=== PATIENT | male | born 1985 | race Hispanic/Latino ===

== ENCOUNTER 2017-10-01 19:27 | Emergency (ER) | payer OTHER ==
[2017-10-01] MEDS ORDERED: TETANUS/DIPHTHERIA TOXOID [ADULT] 0.5 ML VIAL IM ONE (19:41)
[2017-10-01] MEDS ORDERED: CEFTRIAXONE SODIUM 1 GM ONE (20:00)
[2017-10-01] MEDS ORDERED: LIDOCAINE HCL-MPF 1% 2ML VIAL ONE (20:00)
[2017-10-01] MEDS ORDERED: HYDROCODONE/ACETAMINOPHEN 5/325 MG TAB ONE (20:01)
== END 2017-10-01 20:43 | disposition home or self-care (01) ==
LOC: EDH 19:27
DX: S62.651A Nondisplaced fracture of middle phalanx of left index finger, initial encounter for closed fracture (principal); S61.211A Laceration without foreign body of left index finger without damage to nail, initial encounter; Z88.0 Allergy status to penicillin; Z72.0 Tobacco use; W22.8XXA Striking against or struck by other objects, initial encounter; Y93.89 Activity, other specified; Y92.69 Other specified industrial and construction area as the place of occurrence of the external cause; Y99.8 Other external cause status
CPT/HCPCS: 29130; 73140; 90471; 90714; 96372; 99284; J0696; J3490